=== PATIENT | male | born 1990 | race Caucasian/White ===

== ENCOUNTER 2016-10-07 12:36 | Emergency (ER) | payer SELFPAY ==
[~2016-10-07] VITALS: Ht 170.2 cm; Wt 71.8 kg
[~2016-10-07 12:36] MED LIST: DIPH50CA25 PO; FAMO20TA5 PO; NAPR500T8 PO
[2016-10-07 12:45] VITALS: BP 120/62
--- NOTE | 2016-10-07 13:54 | ED.ADGEN ---
Past History Past Medical History: Other Past Surgical History: Other Alcohol Use: None Drug Use: Opiates Adult General HPI HPI Patient presents with a 2 day history of subjective and intermittent fever, sore throat, nonproductive cough, and rhinorrhea. Has been taking over-the- counter medications. 3 other family members have the exact same symptoms in the family. Review of Systems Review of Systems Constitutional: Denies fever or chills [] Eyes: Denies change in visual acuity, redness, or eye pain [] HENT: Denies nasal congestion or sore throat [] Respiratory: Denies cough or shortness of breath [] Cardiovascular: No additional information not addressed in HPI [] GI: Denies abdominal pain, nausea, vomiting, bloody stools or diarrhea [] : Denies dysuria or hematuria [] Musculoskeletal: Denies back pain or joint pain [] Integument: Denies rash or skin lesions [] Neurologic: Denies headache, focal weakness or sensory changes [] Endocrine: Denies polyuria or polydipsia [] Allergies Allergies Allergies Coded Allergies Type Severity Reaction Last Updated Verified acetaminophen Allergy Unknown 11/04/14 No morphine Allergy Unknown 11/04/14 No Physical Exam Physical Exam Constitutional: Well developed, well nourished, no acute distress, non-toxic appearance. [] HENT: Normocephalic, atraumatic, bilateral external ears normal, oropharynx moist, no oral exudates, nose normal. Bilateral TMs within normal limits [] Eyes: PERRLA, EOMI, conjunctiva normal, no discharge. [] Neck: Normal range of motion, no tenderness, supple, no stridor. [] Cardiovascular:Heart rate regular rhythm, no murmur [] Lungs & Thorax: Bilateral breath sounds clear to auscultation [] Abdomen: Bowel sounds normal, soft, no tenderness, no masses, no pulsatile masses. [] Skin: Warm, dry, no erythema, no rash. [] Back: No tenderness, no CVA tenderness. [] Extremities: No tenderness, no cyanosis, no clubbing, ROM intact, no edema. [] Neurologic: Alert and oriented X 3, normal motor function, normal sensory function, no focal deficits noted. [] Psychologic: Affect normal, judgement normal, mood normal. [] Current Patient Data Vital Signs Vital Signs Date Time Temp Pulse Resp B/P Pulse Ox O2 Delivery O2 Flow Rate FiO2 10/07/16 12:45 98.6 86 16 97 Room Air EKG EKG [] Radiology/Procedures Radiology/Procedures [] Course & Med Decision Making Course & Med Decision Making Pertinent Labs and Imaging studies reviewed. (See chart for details) Patient looks well here in emergency department. Given supportive care and follow-up instructions. [] Final Impression Final Impression Viral syndrome [] Problems: Dragon Disclaimer Dragon Disclaimer This electronic medical record was generated, in whole or in part, using a voice recognition dictation system. ARA BOSE MD Oct 07, 2016 13:54
== END 2016-10-07 13:25 | disposition home or self-care (01) ==
LOC: ER 12:36
DX: B34.9 Viral infection, unspecified (principal); F11.10 Opioid abuse, uncomplicated; Z88.5 Allergy status to narcotic agent; Z88.6 Allergy status to analgesic agent
CPT/HCPCS: 99281

== ENCOUNTER 2016-12-14 15:00 | Emergency (ER) | payer SELFPAY ==
[~2016-12-14] VITALS: Ht 170.2 cm; Wt 74.8 kg
[2016-12-14 15:18] VITALS: BP 130/69
[2016-12-14] MEDS ORDERED: LIDOCAINE 2%/EPI 1:100,000 20 ML VIAL. ONE (15:38)
[2016-12-14] MEDS ORDERED: CEPH-264 PO (15:44)
--- NOTE | 2016-12-14 15:50 | PHYS DOC ---
Past History Past Medical History: No Pertinent History Past Surgical History: No Surgical History Alcohol Use: None Drug Use: None Adult General Chief Complaint Chief Complaint: DENTAL PROBLEM HPI HPI 26-year-old man presents with caries left mandible. Teeth 17 ,18 &19 on the posterior molars on the left mandible are very carious Review of Systems Review of Systems Constitutional: Denies fever or chills [] Eyes: Denies change in visual acuity, redness, or eye pain [] HENT: Denies nasal congestion or sore throat carious teeth as mentioned previously Respiratory: Denies cough or shortness of breath [] Cardiovascular: No additional information not addressed in HPI [] GI: Denies abdominal pain, nausea, vomiting, bloody stools or diarrhea [] : Denies dysuria or hematuria [] Musculoskeletal: Denies back pain or joint pain [] Integument: Denies rash or skin lesions [] Neurologic: Denies headache, focal weakness or sensory changes [] Endocrine: Denies polyuria or polydipsia [] Current Medications Current Medications Current Medications Medications (Trade) Dose Ordered Sig/[facility] Start Time Stop Time Status Last Admin Dose Admin Bupivacaine HCl/ Epinephrine Bitart (Sensorcaine-Epi 0.25%-1:[id number] Mpf) 30 ml 1X ONCE 12/14/16 16:00 12/14/16 16:01 Lidocaine/ Epinephrine (Xylocaine 2%-Epi 1:100,000) 20 ml STK-MED ONCE 12/14/16 15:38 12/14/16 15:39 DC Allergies Allergies Allergies Coded Allergies Type Severity Reaction Last Updated Verified acetaminophen Allergy Unknown 11/04/14 No morphine Allergy Unknown 11/04/14 No Physical Exam Physical Exam Constitutional: Well developed, well nourished, no acute distress, non-toxic appearance. [] HENT: Normocephalic, atraumatic, bilateral external ears normal, oropharynx moist, no oral exudates, nose normal. Teeth 1718 and 19 extremely carious [] Eyes: PERRLA, EOMI, conjunctiva normal, no discharge. [] Neck: Normal range of motion, no tenderness, supple, no stridor. [] Cardiovascular:Heart rate regular rhythm, no murmur [] Lungs & Thorax: Bilateral breath sounds clear to auscultation [] Abdomen: Bowel sounds normal, soft, no tenderness, no masses, no pulsatile masses. [] Skin: Warm, dry, no erythema, no rash. [] Back: No tenderness, no CVA tenderness. [] Extremities: No tenderness, no cyanosis, no clubbing, ROM intact, no edema. [] Neurologic: Alert and oriented X 3, normal motor function, normal sensory function, no focal deficits noted. [] Psychologic: Affect normal, judgement normal, mood normal. [] Current Patient Data Vital Signs Vital Signs Date Time Temp Pulse Resp B/P (MAP) Pulse Ox O2 Delivery O2 Flow Rate FiO2 12/14/16 15:18 98.2 106 18 99 Room Air EKG EKG [] Radiology/Procedures Radiology/Procedures [] Impressions: Carious teeth tooth17/181 Course & Med Decision Making Course & Med Decision Making 26-year-old presents with carious teeth I will place patient on antibiotics she was instructed to take anti-inflammatory medications rest and follow-up with a dentist [] Dragon Disclaimer Dragon Disclaimer This chart was dictated in whole or in part using Voice Recognition software in a busy, high-work load, and often noisy Emergency Department environment. It may contain unintended and wholly unrecognized errors or omissions. Departure Departure: Impression: Primary Impression: Infected dental carries Disposition: 01 HOME, SELF-CARE Condition: STABLE Patient Instructions: Dental Caries, Dental Caries-Brief Scripts Cephalexin (KEFLEX) 500 Mg Capsule 1 CAP PO TID, #21 CAP Prov: LARRY MURRELL MD 12/14/16 LARRY MURRELL MD Dec 14, 2016 15:50
[2016-12-14] MEDS ORDERED: BUPIVACAINE-EPI 0.25%-1:200000 MPF 30 ML VIAL. INJ ONE (16:00)
== END 2016-12-14 15:57 | disposition home or self-care (01) ==
LOC: ER 15:00
DX: K02.9 Dental caries, unspecified (principal); Z88.5 Allergy status to narcotic agent; Z88.6 Allergy status to analgesic agent
CPT/HCPCS: 99283

== ENCOUNTER 2017-05-07 14:51 | Emergency (ER) | payer SELFPAY ==
[~2017-05-07] VITALS: Ht 170.2 cm; Wt 71.8 kg
[~2017-05-07 14:51] MED LIST changes: +CEPH-264 PO
[2017-05-07 15:08] VITALS: BP 131/78
[2017-05-07] MEDS ORDERED: IBUP600T16 PO (15:43)
[2017-05-07] MEDS ORDERED: DOXY100C14 PO (15:43)
--- NOTE | 2017-05-07 15:47 | PHYS DOC ---
General Chief Complaint: ABSCESS Stated Complaint: ABSCESS Time Seen by MD: 15:40 Source: patient, old records Exam Limitations: no limitations Problems: History of Present Illness Initial Comments Patient is a 27-year-old male who comes to the ED complaining of right wrist abscess. Patient has history of IV drug use specifically methamphetamine denies any recent use and he does not appear to be intoxicated in the emergency department today. 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 He denies any fever chills sweats or myalgias, ED vital signs : 98F, 99, 16, 131/78, 97% room air. On further questioning he states that this abscess occurred because he was playing with his kids and accidentally cut his hand. He states "it is not from a miss, Doc." He further states that "I picked up some new points at the pharmacy and I'll go home and drain it" referring to new needles. I advised him that it was unsafe for him to do this procedure at home but as he persistently refuses any intervention here I&D will not be performed. Onset: last week Severity: moderate Pain/Injury Location: right wrist Method of Injury: other Modifying Factors: worse with jarring, worse with movement, improves with rest Allergies: Coded Allergies: acetaminophen (Unverified Allergy, Unknown, 11/04/14) morphine (Unverified Allergy, Unknown, 11/04/14) Past Medical History Medical History: other (intravenous methamphetamine abuse, MRSA abscesses) Surgical History: other Social History Smoker: cigarettes Alcohol: none Drugs: marijuana, other (in the past denies recent use) Review of Systems Constitutional: denies chills, denies diaphoresis, denies fever, denies malaise Respiratory: denies cough, denies shortness of breath Cardiovascular: denies chest pain, denies palpitations Gastrointestinal: denies diarrhea, denies nausea, denies vomiting Musculoskeletal: see HPI Skin: see HPI Physical Exam General Appearance: no apparent distress (pale) HEENT: PERRL/EOMI, normal ENT inspection, TMs normal Neck: non-tender, supple Cardiovascular/Respiratory: normal peripheral pulses, normal breath sounds, no respiratory distress Back: no CVA tenderness, no vertebral tenderness Wrist: swelling (bilateral hands with extensive track pearce, at the posterior medial right wrist overlying the distal ulna a 2 cm tender fluctuant abscess is noted no surrounding erythema painless wrist range of motion indicative of no joint involvement) Neurologic/Tendon: normal sensation, normal motor functions, normal tendon functions, responds to pain Psychiatric: alert, oriented x 3 Orders, Labs, Meds Patient offered and refused I&D once again. I discussed prescription and over- the-counter medications, I discussed signs and symptoms to monitor as well as indications for urgent return to the department. I gave the patient work note and advised him not to go to work until symptoms resolved not only for his personal health but for the safety of the public if he is working in prepared [employer] team leader. His questions were answered to his satisfaction and he expressed agreement and understanding with the treatment plan. Departure Time of Disposition: 15:45 Disposition: 01 HOME, SELF-CARE Diagnosis: right wrist abscess likely MRSA Condition: GOOD Patient Instructions: Abscess Additional Instructions: Continue to abstain from substance abuse. Off work through May 10, note given Warm compresses to affected area 4 times daily. Prescription: Doxycycline, ibuprofen 600 mg Take medications with food to avoid GI upset, nausea and vomiting. Follow-up with your doctor in 3-5 days if not improving. Return to ED with new or changing symptoms. JEFF WESLEY DO May 07, 2017 15:47
== END 2017-05-07 15:55 | disposition home or self-care (01) ==
LOC: ER 14:51
DX: L02.413 Cutaneous abscess of right upper limb (principal); F15.10 Other stimulant abuse, uncomplicated; F17.210 Nicotine dependence, cigarettes, uncomplicated; F12.10 Cannabis abuse, uncomplicated; Z86.14 Personal history of Methicillin resistant Staphylococcus aureus infection; Z88.6 Allergy status to analgesic agent; Z88.5 Allergy status to narcotic agent
CPT/HCPCS: 99283

== ENCOUNTER 2019-09-27 12:27 | Emergency (ER) | payer SELFPAY ==
[~2019-09-27] VITALS: Ht 170.2 cm; Wt 71.8 kg
[~2019-09-27 12:27] MED LIST changes: +DOXY100C14 PO; +IBUP600T16 PO
[2019-09-27 12:40] VITALS: BP 131/78
[2019-09-27] MEDS ORDERED: SULF1TAB24 PO (13:06)
--- NOTE | 2019-09-27 13:06 | PHYS DOC ---
Past History Past Medical History: Other Past Surgical History: No Surgical History Alcohol Use: Rarely Drug Use: Marijuana, Methamphetamine Adult General Chief Complaint Chief Complaint: SKIN RASH/ABSCESS [facility] HPI Patient is a 29-year-old male who presents with complaint of swollen red area around his right forearm that popped up today. Patient states that he has a history of abscesses from prior IV heroin abuse. Patient states that he hasn't used for over 2 years now because he is on methadone. He denies any fever.[] Review of Systems Review of Systems Constitutional: Denies fever or chills [] Respiratory: Denies cough or shortness of breath [] Cardiovascular: No additional information not addressed in HPI [] Integument: Tender, swollen area right forearm[] Allergies Allergies Allergies Coded Allergies Type Severity Reaction Last Updated Verified acetaminophen Allergy Unknown 11/04/14 No morphine Allergy Unknown 11/04/14 No Physical Exam Physical Exam Constitutional: Well developed, well nourished, no acute distress, non-toxic appearance. [] Neck: Normal range of motion, no tenderness, supple, no stridor. [] Cardiovascular:Heart rate regular rhythm, no murmur [] Lungs & Thorax: Bilateral breath sounds clear to auscultation [] Skin: Left forearm demonstrates erythematous, raised area, proximally just distal to the antecubital space. There is induration but no fluctuance. [] Current Patient Data Vital Signs Vital Signs Date Time Temp Pulse Resp B/P (MAP) Pulse Ox O2 Delivery O2 Flow Rate FiO2 09/27/19 12:40 98.0 84 16 131/78 (95) 95 Room Air EKG EKG [] Radiology/Procedures Radiology/Procedures [] Course & Med Decision Making Course & Med Decision Making Pertinent Labs and Imaging studies reviewed. (See chart for details) [] Dragon Disclaimer Dragon Disclaimer This electronic medical record was generated, in whole or in part, using a voice recognition dictation system. Departure Departure: Impression: Primary Impression: Cellulitis of left forearm Disposition: 01 HOME, SELF-CARE Condition: STABLE Referrals: PCP,NO (PCP) Patient Instructions: Cellulitis Scripts Sulfamethoxazole/Trimethoprim (BACTRIM DS TABLET) 1 Each Tablet 1 TAB PO BID for infection for 10 Days, #20 TAB 0 Refills Prov: KHLOE MORRISON Jr. DO 09/27/19 KHLOE MORRISON Jr. DO Sep 27, 2019 13:06
== END 2019-09-27 13:08 | disposition home or self-care (01) ==
LOC: ER 12:27
DX: L03.114 Cellulitis of left upper limb (principal); Z88.6 Allergy status to analgesic agent; Z88.5 Allergy status to narcotic agent
CPT/HCPCS: 99283

== ENCOUNTER 2019-12-28 15:21 | Emergency (ER) | payer SELFPAY ==
[~2019-12-28] VITALS: Ht 170.2 cm; Wt 81.1 kg
[~2019-12-28 15:21] MED LIST changes: +SULF1TAB24 PO
[2019-12-28 15:30] VITALS: BP 109/58
--- NOTE | 2019-12-28 15:59 | PHYS DOC ---
Past History Past Medical History: Other Additional Past Medical Histor: HEP C, OPIATE ADDICTION Past Surgical History: No Surgical History Additional Smoking Information: PACK/DAY Alcohol Use: None Drug Use: Marijuana, Methamphetamine General Adult EDM: Chief Complaint: SUNBURN HPI: HPI: 29-year-old male presents with sunburn of both feet. This happened to him about a week ago when he was at the [employer] and not wearing a sunscreen. Patient comes in today because he has been treating his wounds with nonadherent bandages. He attempted to put a Silvadene-based topical ointment on his feet yesterday and left them covered for about 24 hours. When he went to pull it off the nonadherent bandage was now adhered. He exfoliated the top layer of his right foot and thickened of layer of skin on the left foot to allow it to bleed. He decided come in for evaluation and recommendations for further management. He denies fever chills. The erythema has not spread. Review of Systems: Review of Systems: Constitutional: Denies fever or chills Eyes: Denies change in visual acuity HENT: Denies nasal congestion or sore throat Respiratory: Denies cough or shortness of breath Cardiovascular: Denies chest pain or edema GI: Denies abdominal pain, nausea, vomiting, bloody stools or diarrhea : Denies dysuria Musculoskeletal: Denies back pain or joint pain Integument: Sunburn bilateral feet Neurologic: Denies headache, focal weakness or sensory changes Endocrine: Denies polyuria or polydipsia Lymphatic: Denies swollen glands Psychiatric: Denies depression or anxiety Heart Score: Risk Factors: Risk Factors: DM, Current or recent (<one month) smoker, HTN, HLP, family history of CAD, obesity. Risk Scores: Score 0 - 3: 2.5% MACE over next 6 weeks - Discharge Home Score 4 - 6: 20.3% MACE over next 6 weeks - Admit for Clinical Observation Score 7 - 10: 72.7% MACE over next 6 weeks - Early Invasive Strategies Allergies: Allergies: Allergies Coded Allergies Type Severity Reaction Last Updated Verified acetaminophen Allergy Unknown 11/04/14 No morphine Allergy Unknown 11/04/14 No Physical Exam: PE: Constitutional: Well developed, well nourished, no acute distress, non-toxic appearance. [] HENT: Normocephalic, atraumatic, bilateral external ears normal, oropharynx moist, no oral exudates, nose normal. [] Eyes: PERRLA, EOMI, conjunctiva normal, no discharge. [] Neck: Normal range of motion, no tenderness, supple, no stridor. [] Cardiovascular: Heart rate regular rhythm, no murmur [] Lungs & Thorax: Bilateral breath sounds clear to auscultation [] Abdomen: Bowel sounds normal, soft, no tenderness, no masses, no pulsatile masses. [] Skin: Erythematous, warm skin over the bilateral dorsal feet. Consistent with second-degree nicholson. Left foot with evidence of recent superficial bleeding. [] Back: No tenderness, no CVA tenderness. [] Extremities: No tenderness, no cyanosis, no clubbing, ROM intact, no edema. [] Neurologic: Alert and oriented X 3, normal motor function, normal sensory function, no focal deficits noted. [] Psychologic: Affect normal, judgement normal, mood normal. [] Current Patient Data: Vital Signs: Vital Signs Date Time Temp Pulse Resp B/P (MAP) Pulse Ox O2 Delivery O2 Flow Rate FiO2 12/28/19 15:30 98.4 108 20 109/58 (75) 96 Room Air EKG: EKG: [] Radiology/Procedures: Radiology/Procedures: [] Course & Med Decision Making: Course & Med Decision Making Pertinent Labs and Imaging studies reviewed. (See chart for details) The patient does appear to have partial-thickness nicholson of his bilateral feet. We will treat him with Xeroform and bulky gauze dressing. Have given him directions to put a thin layer of triple antibiotic on his nonadherent bandages and change them out twice a day to prevent sticking. He understands that this will take several days to heal. I will give him an additional 2 days off of work so that he can hopefully go back to work on Monday. He is stable for discharge at this time. [] Dragon Disclaimer: Dragon Disclaimer: This electronic medical record was generated, in whole or in part, using a voice recognition dictation system. Departure Departure: Impression: Primary Impression: Sunburn of second degree Disposition: 01 HOME/RESIDENCE PRIOR TO ADM Condition: STABLE Referrals: PCP,NO (PCP) Patient Instructions: Sunburn, [id number] Additional Instructions: To address your wounds, you should put a thin layer of triple antibiotic ointment on a nonadherent pad and then wrap it with a soft dressing. You should change these twice a day. If you can leave your feet open to the air while at home and keep them clean this would be good. If your dressings are getting saturated or filled with sweat, you need to change them out more often. Justification of Admission: Justification of Admission: Justification of Admission Dx: N/A JULIA MUNIZ DO Dec 28, 2019 15:59
== END 2019-12-28 16:05 | disposition home or self-care (01) ==
LOC: ER 15:21
DX: L55.1 Sunburn of second degree (principal); F17.200 Nicotine dependence, unspecified, uncomplicated; Z88.6 Allergy status to analgesic agent; Z88.5 Allergy status to narcotic agent
CPT/HCPCS: 16020; 99282; 99283

== ENCOUNTER 2020-04-17 14:38 | Emergency (ER) | payer SELFPAY ==
[~2020-04-17] VITALS: Ht 170.2 cm; Wt 86.0 kg
[2020-04-17 14:54] VITALS: BP 143/81
[2020-04-17 16:11] LABS: BASO % 1 % (0-3); EOS # 0.2 x10^3/uL (0.0-0.7); EOS % 5 % (0-3); HEMATOCRIT 45.1 % (39.0-53.0); HEMOGLOBIN 14.8 g/dL (13.0-17.5); LYMPH # 1.1 x10^3/uL (1.0-4.8); LYMPH % 25 % (24-48); MEAN CORPUSCULAR HEMOGLOBIN 29 pg (25-35); MEAN CORPUSCULAR HGB CONC 33 g/dL (31-37); MEAN CORPUSCULAR VOLUME 88 fL (79-100); MONO # 0.4 x10^3/uL (0.0-1.1); MONO % 10 % (0-9); NEUT # 2.6 x10^3uL (1.8-7.7); NEUT % 60 % (31-73); PLATELET COUNT 192 x10^3/uL (140-400); RED BLOOD COUNT 5.11 x10^6/uL (4.30-5.70); RED CELL DISTRIBUTION WIDTH 13.3 % (11.5-14.5); WHITE BLOOD COUNT 4.4 x10^3/uL (4.0-11.0)
[2020-04-17 16:18] LABS: CALCIUM 8.7 mg/dL (8.5-10.1); GFR 87.2; POTASSIUM 4.1 mmol/L (3.5-5.1)
[2020-04-17 16:20] LABS: BILIRUBIN,URINE NEG (NEG); CLARITY,URINE CLEAR; COLOR,URINE YELLOW; GLUCOSE,URINE NEG (NEG); NITRITE,URINE NEG (NEG); RBC,URINE 0 /HPF (0-2); UROBILINOGEN,URINE 0.2 mg/dL (0.2 mg/dL); WBC,URINE OCC /HPF (0-4)
[2020-04-17 16:21] LABS: BACTERIA,URINE 0 /HPF (0-FEW); SQUAMOUS EPITHELIAL CELL,UR OCC /LPF
[2020-04-17 16:24] LABS: ALBUMIN 3.3 g/dL (3.4-5.0); ALBUMIN/GLOBULIN RATIO 0.8 (1.0-1.7); TOTAL BILIRUBIN 0.4 mg/dL (0.2-1.0); TOTAL PROTEIN 7.2 g/dL (6.4-8.2)
[2020-04-17] MEDS ORDERED: cefTRIAXone IM 250 MG VIAL IM ONE (16:30)
[2020-04-17] MEDS ORDERED: AZITHROMYCIN 250 MG TABLET. PO ONE (16:30)
[2020-04-17] MEDS ORDERED: METR500T PO (16:37)
--- NOTE | 2020-04-17 16:38 | PHYS DOC ---
Past History Past Medical History: Abscess, Asthma Additional Past Medical Histor: HEP C, OPIATE ADDICTION Past Surgical History: Other Alcohol Use: None Drug Use: Marijuana, Methamphetamine General Adult EDM: Chief Complaint: FEVER HPI: HPI: 30-year-old male presents with subjective fever, body aches, and concern for STD. Patient's girlfriend tested positive for trichomonas and he is worried about having STD himself. He is also had body aches and a cough. He is mildly concerned about COVID-19 though he does not have any specific exposures. Review of Systems: Review of Systems: Constitutional: Fever Eyes: Denies change in visual acuity HENT: Denies nasal congestion or sore throat Respiratory: Cough without shortness of breath Cardiovascular: Denies chest pain or edema GI: Denies abdominal pain, nausea, vomiting, bloody stools or diarrhea : No urinary or penile symptoms. Musculoskeletal: Denies back pain or joint pain Integument: Denies rash Neurologic: Denies headache, focal weakness or sensory changes Endocrine: Denies polyuria or polydipsia Lymphatic: Denies swollen glands Psychiatric: Denies depression or anxiety Heart Score: Risk Factors: Risk Factors: DM, Current or recent (<one month) smoker, HTN, HLP, family history of CAD, obesity. Risk Scores: Score 0 - 3: 2.5% MACE over next 6 weeks - Discharge Home Score 4 - 6: 20.3% MACE over next 6 weeks - Admit for Clinical Observation Score 7 - 10: 72.7% MACE over next 6 weeks - Early Invasive Strategies Current Medications: Current Meds: Current Medications Medications (Trade) Dose Ordered Sig/[facility] Start Time Stop Time Status Last Admin Dose Admin Azithromycin (Zithromax) 1,000 mg 1X ONCE 04/17/20 16:30 04/17/20 16:31 UNV Ceftriaxone Sodium (Rocephin Im) 250 mg 1X ONCE 04/17/20 16:30 04/17/20 16:31 UNV Allergies: Allergies: Allergies Coded Allergies Type Severity Reaction Last Updated Verified acetaminophen Allergy Unknown 11/04/14 No morphine Allergy Unknown 11/04/14 No Physical Exam: PE: Constitutional: Well developed, well nourished, no acute distress, non-toxic appearance. [] HENT: Normocephalic, atraumatic, bilateral external ears normal, oropharynx moist, no oral exudates, nose normal. [] Eyes: PERRLA, EOMI, conjunctiva normal, no discharge. [] Neck: Normal range of motion, no tenderness, supple, no stridor. [] Cardiovascular: Heart rate regular rhythm, no murmur [] Lungs & Thorax: Bilateral breath sounds clear to auscultation [] Abdomen: Bowel sounds normal, soft, no tenderness, no masses, no pulsatile mass es. [] Skin: Warm, dry, no erythema, no rash. [] Back: No tenderness, no CVA tenderness. [] Extremities: No tenderness, no cyanosis, no clubbing, ROM intact, no edema. [] Neurologic: Alert and oriented X 3, normal motor function, normal sensory function, no focal deficits noted. [] Psychologic: Affect normal, judgement normal, mood normal. [] Current Patient Data: Labs: Laboratory Tests Test 04/17/20 15:34 04/17/20 15:38 White Blood Count 4.4 x10^3/uL (4.0-11.0) Red Blood Count 5.11 x10^6/uL (4.30-5.70) Hemoglobin 14.8 g/dL (13.0-17.5) Hematocrit 45.1 % (39.0-53.0) Mean Corpuscular Volume 88 fL (79-100) Mean Corpuscular Hemoglobin 29 pg (25-35) Mean Corpuscular Hemoglobin Concent 33 g/dL (31-37) Red Cell Distribution Width 13.3 % (11.5-14.5) Platelet Count 192 x10^3/uL (140-400) Neutrophils (%) (Auto) 60 % (31-73) Lymphocytes (%) (Auto) 25 % (24-48) Monocytes (%) (Auto) 10 % (0-9) H Eosinophils (%) (Auto) 5 % (0-3) H Basophils (%) (Auto) 1 % (0-3) Neutrophils # (Auto) 2.6 x10^3uL (1.8-7.7) Lymphocytes # (Auto) 1.1 x10^3/uL (1.0-4.8) Monocytes # (Auto) 0.4 x10^3/uL (0.0-1.1) Eosinophils # (Auto) 0.2 x10^3/uL (0.0-0.7) Basophils # (Auto) 0.0 x10^3/uL (0.0-0.2) Sodium Level 136 mmol/L (136-145) Potassium Level 4.1 mmol/L (3.5-5.1) Chloride Level 101 mmol/L (98-107) Carbon Dioxide Level 31 mmol/L (21-32) Anion Gap 4 (6-14) L Blood Urea Nitrogen 10 mg/dL (8-26) Creatinine 1.0 mg/dL (0.7-1.3) Estimated GFR (Cockcroft-Gault) 87.2 BUN/Creatinine Ratio 10 (6-20) Glucose Level 127 mg/dL (70-99) H Calcium Level 8.7 mg/dL (8.5-10.1) Total Bilirubin 0.4 mg/dL (0.2-1.0) Aspartate Amino Transferase (AST) 19 U/L (15-37) Alanine Aminotransferase (ALT) 21 U/L (16-63) Alkaline Phosphatase 125 U/L (46-116) H Total Protein 7.2 g/dL (6.4-8.2) Albumin 3.3 g/dL (3.4-5.0) L Albumin/Globulin Ratio 0.8 (1.0-1.7) L Urine Collection Type Unknown Urine Color Yellow Urine Clarity Clear Urine pH 6.5 Urine Specific [place] 1.025 Urine Protein Neg (NEG-TRACE) Urine Glucose (UA) Neg mg/dL (NEG) Urine Ketones (Stick) Trace mg/dL (NEG) Urine Blood Neg (NEG) Urine Nitrite Neg (NEG) Urine Bilirubin Neg (NEG) Urine Urobilinogen Dipstick 0.2 mg/dL (0.2 mg/dL) Urine Leukocyte Esterase Neg (NEG) Urine RBC 0 /HPF (0-2) Urine WBC Occ /HPF (0-4) Urine Squamous Epithelial Cells Occ /LPF Urine Bacteria 0 /HPF (0-FEW) Urine Mucus Slight /LPF Vital Signs: Vital Signs Date Time Temp Pulse Resp B/P (MAP) Pulse Ox O2 Delivery O2 Flow Rate FiO2 04/17/20 14:54 98.4 67 16 143/81 (101) 94 Room Air EKG: EKG: [] Radiology/Procedures: Radiology/Procedures: [] Course & Med Decision Making: Course & Med Decision Making Pertinent Labs and Imaging studies reviewed. (See chart for details) I went ahead and ordered a COVID-19 test for the patient. I have low suspicion for COVID. Patient would like prophylactic treatment for STDs. I will treat him with 2 and 50 mg Rocephin IM, 1 g of azithromycin, and a prescription for Flagyl for 7 days. [] Dragon Disclaimer: Dragon Disclaimer: This electronic medical record was generated, in whole or in part, using a voice recognition dictation system. Departure Departure: Impression: Primary Impression: Concern about STD in male without diagnosis Additional Impression: Counseled about COVID-19 virus infection Disposition: DC HOME SELF CARE/HOMELESS Condition: STABLE Referrals: PCP,NO (PCP) Patient Instructions: Sexually Transmitted Disease, Xwxo-me-Clim Scripts Metronidazole (FLAGYL) 500 Mg Tablet 1 TAB PO BID for STD, #14 TAB Prov: JULIA MUNIZ DO 04/17/20 JULIA MUNIZ DO Apr 17, 2020 16:38
== END 2020-04-17 16:52 | disposition home or self-care (01) ==
LOC: ER 14:38
DX: Z20.2 Contact with and (suspected) exposure to infections with a predominantly sexual mode of transmission (principal); Z20.828 Contact with and (suspected) exposure to other viral communicable diseases; J45.909 Unspecified asthma, uncomplicated; F12.10 Cannabis abuse, uncomplicated; F15.10 Other stimulant abuse, uncomplicated; Z88.6 Allergy status to analgesic agent; Z88.5 Allergy status to narcotic agent
CPT/HCPCS: 36415; 80053; 81001; 85025; 87491; 87591; 96372; 99283; J0456; J0696; U0003

== ENCOUNTER 2020-06-22 09:18 | Emergency (ER) | payer SELFPAY ==
[~2020-06-22] VITALS: Ht 170.2 cm; Wt 81.0 kg
[~2020-06-22 09:18] MED LIST changes: +METR500T PO
[2020-06-22 09:29] VITALS: BP 118/57
--- NOTE | 2020-06-22 09:30 | PHYS DOC ---
Past History Past Medical History: Abscess, Asthma Additional Past Medical Histor: HEP C, OPIATE ADDICTION Past Surgical History: Other Alcohol Use: None Drug Use: Marijuana, Methamphetamine Adult General Chief Complaint Chief Complaint: DENTAL PROBLEM HPI HPI Patient is a 30-year-old male who presents with dental pain. 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 States this is because of his poor dental hygiene. Does not have insurance at all, states for the past x1 week he has had worsening dental pain to his left upper incisor. He has been taking ibuprofen with mild relief in pain but admits worsened pain and swelling to his gum and left upper lip area today which concerned him prompting him to visit our ER for evaluation. He has history of dental infections and abscesses, currently does not have dental insurance and has not talked to a dentist about this. Denies any fever, no headaches, no crepitus or expression of pus Review of Systems Review of Systems Fourteen body systems of review of systems have been reviewed. See HPI for pertinent positives and negative responses, other rodriguez all other systems are negative, non-pertinent or non-contributory Allergies Allergies Allergies Coded Allergies Type Severity Reaction Last Updated Verified acetaminophen Allergy Unknown 11/04/14 No morphine Allergy Unknown 11/04/14 No Physical Exam Physical Exam Constitutional: Well developed, well nourished, no acute distress, non-toxic appearance. HENT: Normocephalic, atraumatic, bilateral external ears normal, oropharynx moist, no oral exudates, nose normal. Uvula: without deviation or edema. Uvula midline. Soft palate: without swelling Sublingual: normal appearance/no brawny edema or tongue elevation Teeth and gums: Poor dental hygiene. No pus expression, no gingival swelling, no active oral bleeding. Tenderness and periapical swelling to left upper incisor tooth #11 without any obvious abscess or other bacterial collection Tonsils: without pus. Eyes: PERRLA, EOMI, conjunctiva normal, no discharge. Neck: Normal range of motion, no tenderness, supple, no stridor. Cardiovascular: Heart rate regular per monitor Lungs & Thorax: No respiratory distress or accessory muscle use, bilateral chest rise Abdomen: Abdomen soft, non-tender, no guarding or rebound, nonacute abdomen. Skin: Warm, dry, no erythema, no rash. Back: No tenderness, no CVA tenderness. Extremities: No tenderness, no cyanosis, no clubbing, ROM intact, no edema. Neurologic: Alert and oriented X 3, grossly normal motor & sensory function, no focal deficits noted. Psychologic: Anxious affect, judgement normal, mood normal. Current Patient Data Vital Signs Vital Signs Date Time Temp Pulse Resp B/P (MAP) Pulse Ox O2 Delivery O2 Flow Rate FiO2 06/22/20 09:29 97.0 74 18 118/57 (77) 96 Room Air EKG EKG [] Radiology/Procedures Radiology/Procedures [] Heart Score Risk Factors: Risk Factors: DM, Current or recent (<one month) smoker, HTN, HLP, family history of CAD, obesity. Risk Scores: Risk Factors: DM, Current or recent (<one month) smoker, HTN, HLP, family history of CAD, obesity. Course & Med Decision Making Course & Med Decision Making History and physical exam consistent with acute dental infection in setting of chronic poor dental hygiene No emergent and/or surgical findings present today. No indication for further diagnostic work-up and/or intervention or hospital admission Patient prescribed amoxicillin which she is taken in the past and tolerated well. Patient given resources on local dental offices to call immediately after discharge today to discuss need for tooth extraction Discussed with the patient all findings and diagnostic testing as well as the need to follow up with PCP for further evaluation and treatment or return to the ED if any new or worsening symptoms. Strict return precautions were also discussed at length with good understanding by patient. Patient voiced understanding and agreement with the plan. Hemodynamically stable at time of disposition. Dragon Disclaimer Dragon Disclaimer This electronic medical record was generated, in whole or in part, using a voice recognition dictation system. Departure Departure: Impression: Primary Impression: Infected dental carries Disposition: 01 DC HOME SELF CARE/HOMELESS Condition: STABLE Referrals: PCP,NO (PCP) Patient Instructions: Dental Pain Additional Instructions: You were seen for a dental infection. There was no indication for drainage today; however, you must take the entire course of antibiotics as prescribed and follow-up with dentist in upcoming 48 to 72 hours for repeat examination. Please utilize the attached list of local dental offices to call to discuss need for tooth extraction and further dental care. You need to return to the ED if you develop worsening pain, fever, swelling, redness, or any other new or concerning symptoms. Scripts Amoxicillin (AMOXICILLIN) 500 Mg Capsule 1 CAP PO TID for Dental Infection for 7 Days, #21 CAP Prov: SUN ROD DO 06/22/20 SUN ROD DO Jun 22, 2020 09:30
[2020-06-22] MEDS ORDERED: AMOX500C PO (09:41)
== END 2020-06-22 09:52 | disposition home or self-care (01) ==
LOC: ER 09:18
DX: K06.8 Other specified disorders of gingiva and edentulous alveolar ridge (principal); K02.9 Dental caries, unspecified; K04.7 Periapical abscess without sinus; J45.909 Unspecified asthma, uncomplicated; Z88.8 Allergy status to other drugs, medicaments and biological substances; Z88.5 Allergy status to narcotic agent
CPT/HCPCS: 99283

== ENCOUNTER 2021-01-12 20:38 | Emergency (ER) | payer SELFPAY ==
[~2021-01-12] VITALS: Ht 170.2 cm; Wt 76.6 kg
[~2021-01-12 20:38] MED LIST changes: +AMOX500C PO; +DOXY-181 PO; -DOXY100C14 PO
[2021-01-12 20:43] VITALS: BP 125/76
[2021-01-12] MEDS ORDERED: AMOX500C PO (21:07)
--- NOTE | 2021-01-12 21:19 | PHYS DOC ---
Past History Past Medical History: Asthma Additional Past Medical Histor: HEP C, OPIATE ADDICTION (NOE WOOTEN APRN) Past Surgical History: Other Additional Past Surgical Histo: ABSCESS (NOE WOOTEN APRN) Alcohol Use: None Drug Use: Marijuana, Methamphetamine (NOE WOOTEN APRN) General Adult EDM: Chief Complaint: DENTAL PROBLEM HPI: HPI: Patient is a 30-year-old male presents with dental pain. Patient states "I was seen here a couple months ago for tooth pain but after I took the antibiotic the pain improved and I did not follow-up with a dentist". "I feel like all of my teeth are rotting and going to follow-up". Patient has a history of IV drug use and poor dental hygiene. Denies fever. Denies medical history. (NOE WOOTEN APRN) Review of Systems: Review of Systems: Constitutional: Denies fever or chills Eyes: Denies change in visual acuity HENT: Reports frontal tooth pain and broken teeth Respiratory: Denies cough or shortness of breath Cardiovascular: Denies chest pain or edema GI: Denies abdominal pain, nausea, vomiting, bloody stools or diarrhea : Denies dysuria Musculoskeletal: Denies back pain or joint pain Integument: Denies rash Neurologic: Denies headache, focal weakness or sensory changes Endocrine: Denies polyuria or polydipsia Lymphatic: Denies swollen glands Psychiatric: Denies depression or anxiety (NOE WOOTEN APRN) Allergies: Allergies: Allergies Coded Allergies Type Severity Reaction Last Updated Verified acetaminophen Allergy Unknown 06/22/20 No morphine Allergy Unknown 06/22/20 No (NOE WOOTEN APRN) Physical Exam: PE: Constitutional: Well developed, well nourished, no acute distress, non-toxic appearance. [] HENT: Normocephalic, atraumatic, bilateral external ears normal, upper, front tooth broken Eyes: PERRLA, EOMI, conjunctiva normal, no discharge. [] Neck: Normal range of motion, no tenderness, supple, no stridor. [] Cardiovascular:Heart rate regular rhythm, no murmur [] Lungs & Thorax: Bilateral breath sounds clear to auscultation [] Abdomen: Bowel sounds normal, soft, no tenderness, no masses, no pulsatile masses. [] Skin: Warm, dry, no erythema, no rash. [] Back: No tenderness, no CVA tenderness. [] Extremities: No tenderness, no cyanosis, no clubbing, ROM intact, no edema. [] Neurologic: Alert and oriented X 3, normal motor function, normal sensory function, no focal deficits noted. [] Psychologic: Affect normal, judgement normal, mood normal. [] (NOE WOOTEN APRN) Current Patient Data: Vital Signs: Vital Signs Date Time Temp Pulse Resp B/P (MAP) Pulse Ox O2 Delivery O2 Flow Rate FiO2 01/12/21 20:43 98.0 72 16 125/76 98 Nasal Cannula (NOE WOOTEN APRN) EKG: EKG: [] (NOE WOOTEN APRN) Radiology/Procedures: Radiology/Procedures: [] (NOE WOOTEN APRN) Heart Score: C/O Chest Pain: No Risk Factors: Risk Factors: DM, Current or recent (<one month) smoker, HTN, HLP, family history of CAD, obesity. Risk Scores: Score 0 - 3: 2.5% MACE over next 6 weeks - Discharge Home Score 4 - 6: 20.3% MACE over next 6 weeks - Admit for Clinical Observation Score 7 - 10: 72.7% MACE over next 6 weeks - Early Invasive Strategies (NOE WOOTEN APRN) Course & Med Decision Making: Course & Med Decision Making Pertinent Labs and Imaging studies reviewed. (See chart for details) [] All who presents with dental pain. Patient given 600 mg ibuprofen. Patient given antibiotic penicillin, 500 mg, 3 times daily for 7 days. Patient given resources for local dentist. Explained to patient that he needs to follow-up w ith a dentist to have teeth extracted. Patient can continue to take ibuprofen and Tylenol at home for pain. Patient given return precautions. Hemodynamically stable upon disposition. (NOE WOOTEN APRN) Course & Med Decision Making Did not see or evaluate patient. Agree with JAVA SYBASE DEVELOPER's work-up and disposition per note. (BELKYS MARQUES MD) Wilman Disclaimer: Wilman Disclaimer: This electronic medical record was generated, in whole or in part, using a voice recognition dictation system. (NOE WOOTEN APRN) Departure Departure: Impression: Primary Impression: Dental caries Disposition: HOME / SELF CARE / HOMELESS Condition: STABLE Referrals: PCP,NO (PCP) Patient Instructions: Dental Caries Additional Instructions: You were seen for a dental infection. You must take the entire course of antibiotics as prescribed and follow-up with dentist in upcoming 48 to 72 hours for repeat examination. You can also take ibuprofen and Tylenol at home for pain. Please utilize the attached list of local dental offices to call to discuss need for tooth extraction and further dental care. EMERGENCY DEPARTMENT GENERAL DISCHARGE INSTRUCTIONS Thank you for coming to [facility] (ED) today and trusting us with you care. We trust that you had a positivie experience in our Emergency Department. If you wish to speak to the department management, you may call the director at [phone]. YOUR FOLLOW UP INSTRUCTIONS ARE FOLLOWS: 1. Do you have a private Doctor? If you do not have a private doctor, please ask for a resource list of physicians or clinics that may be able to assist you with follow up care. 2. The Emergency Physician has interpreted your x-rays. The X-Ray specialist will also review them. If there is a change in the findings, you will be notified in 48 hours when at all possible. 3. A lab test or culture has been done, your results will be reviewed and you will be notified if you need a change in treatment. ADDITIONAL INSTRUCTIONS AND INFORMATION: 1. Your care today has been supervised by a physician who is specially trained in emergency care. Many problems require more than one evaluation for a complete diagnosis and treatment. We recommend that you schedule your follow up appointment as recommended to ensure complete treatment of you illness or injury. If you are unable to obtain follow up care and continue to have a problem, or if your condition worsens, we recommend that you return to the ED. 2. We are not able to safely determine your condition over the phone nor are we able to give sound medical advice over the phone. For these safety reasons, if you call for medical advice we will ask you to come to the ED for further evaluation. 3. If you have any questions regarding these discharge instructions please call the ED at [phone]. SAFETY INFORMATION: In the interest of safety, wellness, and injury prevention; we encourage you to wear your sealbelt, if you smoke; quite smoking, and we encourage family to use a protective helmet for bicycling and other sporting events that present an increased risk for head injury. IF YOUR SYMPTOMS WORSEN OR NEW SYMPTOMS DEVELOP, OR YOU HAVE CONCERNS ABOUT YOUR CONDITION; OR IF YOUR CONDITION WORSENS WHILE YOU ARE WAITING FOR YOUR FOLLOW UP APPOINTMENT; EITHER CONTACT YOUR PRIMARY CARE DOCTOR, THE PHYSICIAN WHOSE NAME AND NUMBER YOU WERE GIVEN, OR RETURN TO THE ED IMMEDIATELY. Scripts Amoxicillin (AMOXICILLIN) 500 Mg Capsule 1 CAP PO BID for infection for 10 Days, #20 CAP Prov: NOE WOOTEN APRN 01/12/21 NOE WOOTEN APRN Jan 12, 2021 21:19 BELKYS MARQUES MD Jan 13, 2021 00:12
[2021-01-12] MEDS ORDERED: HYDROcodone/APAP 5/325MG 1 TAB TABLET PO ONE (21:30)
[2021-01-12] MEDS ORDERED: IBUPROFEN 600 MG TABLET. PO ONE (21:30)
[2021-01-12] MEDS ORDERED: AMOXICILLIN 250 MG CAPSULE PO ONE (21:30)
== END 2021-01-12 21:29 | disposition home or self-care (01) ==
LOC: ER 20:38
DX: K02.9 Dental caries, unspecified (principal); J45.909 Unspecified asthma, uncomplicated; Z88.5 Allergy status to narcotic agent; Z88.8 Allergy status to other drugs, medicaments and biological substances
CPT/HCPCS: 99284

== ENCOUNTER 2021-06-13 17:48 | Emergency (ER) | payer OTHER ==
[~2021-06-13] VITALS: Ht 170.2 cm; Wt 77.2 kg
[2021-06-13 18:03] VITALS: BP 116/71
[2021-06-13] MEDS ORDERED: IBUP600T16 PO (18:25)
[2021-06-13] MEDS ORDERED: AMOX1TAB61 PO (18:25)
--- NOTE | 2021-06-13 18:25 | PHYS DOC ---
Past History Past Medical History: Asthma Additional Past Medical Histor: HEP C, OPIATE ADDICTION (SANDRA MONROY APRN) Past Surgical History: Other Additional Past Surgical Histo: ABSCESS (SANDRA MONROY APRN) Smoking: Greater than 1 pack/day Alcohol Use: None Drug Use: Marijuana, Methamphetamine (SANDRA MONROY APRN) General Adult EDM: Chief Complaint: DENTAL PROBLEM HPI: HPI: Patient is a 31-year-old male that presents today with right lower tooth pain. Patient states that pain started yesterday afternoon, he states that he has been taking [id number] ibuprofen for pain, but he says that is not working. He states that he has a job now that he gets insurance in the month of July for dental he says he will see a dentist at that time. Patient states he had an old filling there and the tooth has since broken off from the root since then there is an old filling at that tooth (SANDRA MONROY APRN) Review of Systems: Review of Systems: Constitutional: Denies fever or chills Eyes: Denies change in visual acuity HENT: Right lower molar pain Respiratory: Denies cough or shortness of breath Cardiovascular: Denies chest pain or edema GI: Denies abdominal pain, nausea, vomiting, bloody stools or diarrhea : Denies dysuria Musculoskeletal: Denies back pain or joint pain Integument: Denies rash Neurologic: Denies headache, focal weakness or sensory changes Endocrine: Denies polyuria or polydipsia Lymphatic: Denies swollen glands Psychiatric: Denies depression or anxiety (SANDRA MONROY APRN) Allergies: Allergies: Allergies Coded Allergies Type Severity Reaction Last Updated Verified acetaminophen Allergy Unknown 06/22/20 No morphine Allergy Unknown 06/22/20 No (SANDRA MONROY APRN) Physical Exam: PE: Constitutional: Well developed, well nourished, no acute distress, non-toxic appearance. [] HENT: Multiple teeth missing, right lower gumline is red and inflamed, back molar noted with an old white filling, root is exposed with most of tooth missing only the filling remains. Eyes: PERRLA, EOMI, conjunctiva normal, no discharge. [] Neck: Normal range of motion, no tenderness, supple, no stridor. [] Cardiovascular:Heart rate regular rhythm, no murmur [] Lungs & Thorax: Bilateral breath sounds clear to auscultation [] Abdomen: Bowel sounds normal, soft, no tenderness, no masses, no pulsatile masses. [] Skin: Warm, dry, no erythema, no rash. [] Back: No tenderness, no CVA tenderness. [] Extremities: No tenderness, no cyanosis, no clubbing, ROM intact, no edema. [] Neurologic: Alert and oriented X 3, normal motor function, normal sensory function, no focal deficits noted. [] Psychologic: Affect normal, judgement normal, mood normal. [] (SANDRA MONROY APRN) Current Patient Data: Vital Signs: Temp 98.5 Vital Signs Date Time Temp Pulse Resp B/P (MAP) Pulse Ox O2 Delivery O2 Flow Rate FiO2 06/13/21 18:03 91 18 116/71 (86) 95 (SANDRA MONROY APRN) EKG: EKG: [] (SANDRA MONROY APRN) Radiology/Procedures: Radiology/Procedures: [] (SANDRA MONROY APRN) Heart Score: C/O Chest Pain: N/A Risk Factors: Risk Factors: DM, Current or recent (<one month) smoker, HTN, HLP, family history of CAD, obesity. Risk Scores: Score 0 - 3: 2.5% MACE over next 6 weeks - Discharge Home Score 4 - 6: 20.3% MACE over next 6 weeks - Admit for Clinical Observation Score 7 - 10: 72.7% MACE over next 6 weeks - Early Invasive Strategies (SANDRA MONROY APRN) Course & Med Decision Making: Course & Med Decision Making Pertinent Labs and Imaging studies reviewed. (See chart for details) We will give a list of dental clinics to the patient to follow-up with, also write for antibiotics to be sent to the local pharmacy instructed patient to take ibuprofen as needed for pain since patient is allergic to acetaminophen (SANDRA MONROY APRN) Course & Med Decision Making I was the Attending physician on the above date of service of this patient. This patient was evaluated, examined, treated, and dispositioned from the emergency department by the mid-level practitioner. Although I was working at the time , no assistance was requested. Electronically signed, Sun Rod DO (SUN ROD DO) Wilman Disclaimer: Wilman Disclaimer: This electronic medical record was generated, in whole or in part, using a voice recognition dictation system. (SANDRA MONROY APRN) Departure Departure: Impression: Primary Impression: Pain due to dental caries Disposition: HOME / SELF CARE / HOMELESS Condition: STABLE Referrals: PCP,NO (PCP) Patient Instructions: Dental Caries Additional Instructions: Augmentin 875 mg every 12 hours for the next 14 days Motrin [id number] per label directed as needed for pain Follow-up with the dental clinic or your dental provider as soon as possible Scripts Ibuprofen (IBUPROFEN) 600 Mg Tablet 600 MG PO PRN Q6HRS PRN for PAIN, #30 TAB Prov: SANDRA MONROY APRN 06/13/21 Amoxicillin/Potassium Clav (AUGMENTIN 875-125 TABLET) 1 Each Tablet 1 TAB PO BID for dental caries for 14 Days, #28 TAB 0 Refills Prov: SANDRA MONROY APRN 06/13/21 SANDRA MONROY APRN Jun 13, 2021 18:25 SUN ROD DO Jun 18, 2021 07:04
[2021-06-13] MEDS ORDERED: AMOXICILLIN/K CLAV 875/125MG TABLET. PO ONE (18:30)
[2021-06-13] MEDS ORDERED: AMOXICILLIN/K CLAV 875/125MG TABLET. ONE (18:31)
== END 2021-06-13 18:33 | disposition home or self-care (01) ==
LOC: ER 17:48
DX: K02.9 Dental caries, unspecified (principal); J45.909 Unspecified asthma, uncomplicated; F17.200 Nicotine dependence, unspecified, uncomplicated; Z88.5 Allergy status to narcotic agent; Z88.8 Allergy status to other drugs, medicaments and biological substances
CPT/HCPCS: 99283

== ENCOUNTER 2021-07-22 22:02 | Emergency (ER) | payer OTHER ==
[~2021-07-22] VITALS: Ht 170.2 cm; Wt 77.2 kg
[~2021-07-22 22:02] MED LIST changes: +AMOX1TAB61 PO; -DIPH50CA25 PO; +DIPH50CA53 PO
--- NOTE | 2021-07-22 22:09 | PHYS DOC ---
Past History Past Medical History: Asthma, Hepatitis Additional Past Medical Histor: HEP C, OPIATE ADDICTION Past Surgical History: Other Additional Past Surgical Histo: ABSCESS Smoking: Greater than 1 pack/day Alcohol Use: None Drug Use: Marijuana, Methamphetamine General Adult HPI: HPI: :".. I shot up heroin,,,, and got these 4 areas that got infected on my legs ... 3 of them have drained this one looks ... like it is going to drain ...but I probably need some antibiotics... I did take a friend's amoxicillin but has not really helped yet.." Patient is a 31 year old male heroin addict who presents with above hx and complaints cellulitis and abscess from injecting heroin. Patient's last tetanus was age 13. No recent travel. No specific ill contacts. Patient denies any history of HIV or immunosuppression. Patient does smoke. Patient states he uses heroin every day...." one to two dimes worth". Patient has 4 areas of infected injection sites 2 on each legs. Each appear the size of 4 to 5 cm diameter with a central area of necrosis. There is no striations. There is no adenopathy at femoral area. Patient has multiple chronic scarring and injection sites on legs and arms. Patient at this time declines any referral for drug rehab. Patient not currently following with primary care. Review of Systems: Review of Systems: Constitutional: Denies fever or chills Eyes: Denies change in visual acuity HENT: Denies nasal congestion or sore throat Respiratory: Denies cough or shortness of breath Cardiovascular: Denies chest pain or edema GI: Denies abdominal pain, nausea, vomiting, bloody stools or diarrhea : Denies dysuria Musculoskeletal: Denies back pain or joint pain Integument: Complaints of cellulitis at drug injection sites Neurologic: Denies headache, focal weakness or sensory changes Endocrine: Denies polyuria or polydipsia Lymphatic: Denies swollen glands Psychiatric: Denies depression or anxiety Family History: Family History: Noncontributory to presentation Current Medications: Current Meds: See nursing for home meds Allergies: Allergies: Allergies Coded Allergies Type Severity Reaction Last Updated Verified acetaminophen Allergy Unknown 06/22/20 No morphine Allergy Unknown 06/22/20 No Physical Exam: PE: Constitutional: no acute distress, non-toxic appearance. [] HENT: Normocephalic, atraumatic, bilateral external ears normal, oropharynx moist, no oral exudates, nose normal. Poor dentition Eyes: PERRLA, EOMI, conjunctiva normal, no discharge. [] Neck: Normal range of motion, no tenderness, supple, no stridor. [] Cardiovascular:Heart rate regular rhythm, no murmur [] Lungs & Thorax: Bilateral breath sounds equal apex with few scattered wheezes on auscultation [] Abdomen: Bowel sounds decreased, soft, no tenderness, no masses, no pulsatile masses. [] Skin: Warm, dry, no erythema, no rash. Poor areas of cellulitis as per HPI. Multiple areas of prior injection sites and scarring. Tattoos. Back: No tenderness, no CVA tenderness. [] Extremities: No tenderness, no cyanosis, no clubbing, ROM intact, no edema. [] Neurologic: Alert and oriented X 3, normal motor function, normal sensory function, no focal deficits noted. Ambulatory without problems. Psychologic: Affect anxious, judgement normal, mood normal. [] EKG: EKG: [] Radiology/Procedures: Radiology/Procedures: [] Heart Score: C/O Chest Pain: N/A Risk Factors: Risk Factors: DM, Current or recent (<one month) smoker, HTN, HLP, family history of CAD, obesity. Risk Scores: Score 0 - 3: 2.5% MACE over next 6 weeks - Discharge Home Score 4 - 6: 20.3% MACE over next 6 weeks - Admit for Clinical Observation Score 7 - 10: 72.7% MACE over next 6 weeks - Early Invasive Strategies Course & Med Decision Making: Course & Med Decision Making Pertinent Labs and Imaging studies reviewed. (See chart for details) Begged patient consider referral to drug rehab. Patient declined. Patient was given the number for [facility] if he would like to investigate or have a plan to start drug rehab. Advised the patient if he decide to continue to the use heroin IV, to use clean or sterilized injection syringes and needles. Patient also told clean and disinfect site that he is going to inject. Advised patient never share his injection equipment. Encourage patient to get follow-up testing for HIV and other hepatitis infections. . Patient currently declining any lab work. Advised patient he could always return for reevaluation. For current tx of injection site infections recommend he use warm compresses salt water and Epson salts at least 4 times a day. Afterwards from massage sites with Polysporin. Patient also take Bactrim DS twice a day. Patient to monitor site closely for increased infection. Patient follow-up with his primary care. Encouraged patient to check into the [facility] for outpatient drug rehab, since he currently does not want in hospital treatment. Patient tetanus was updated. Impression: 1. Cellulitis at IV drug injection sites 2. Heroin addiction 3. Tobacco use 4. Hx. of Hepatitis C [] Dragon Disclaimer: Dragon Disclaimer: This electronic medical record was generated, in whole or in part, using a voice recognition dictation system. Departure Departure: Referrals: [facility] (PCP) Scripts Sulfamethoxazole/Trimethoprim (BACTRIM DS TABLET) 1 Each Tablet 1 TAB PO BID for cellulitis for 10 Days, #20 TAB 0 Refills Prov: RIVER ROSSI MD 07/22/21 Wilman Disclaimer This chart was dictated in whole or in part using Voice Recognition software in a busy, high-work load, and often noisy Emergency Department environment. It may contain unintended and wholly unrecognized errors or omissions. RIVER ROSSI MD Jul 22, 2021 22:09
[2021-07-22] MEDS ORDERED: SULF1TAB24 PO (23:26)
[2021-07-22 23:45] VITALS: BP 114/71
[2021-07-22] MEDS ORDERED: cefTRIAXone IM 1 GM VIAL IM ONE (23:45)
[2021-07-22] MEDS ORDERED: SMZ/TMP 800/160MG TABLET. PO ONE (23:45)
[2021-07-22] MEDS ORDERED: DIPHTH,PERTUSS(ACELL),TET TOX 0.5 ML DISP.SYRIN. VAX IM ONE (23:45)
== END 2021-07-23 00:02 | disposition home or self-care (01) ==
LOC: ER 22:02
DX: L03.116 Cellulitis of left lower limb (principal); L03.115 Cellulitis of right lower limb; F11.20 Opioid dependence, uncomplicated; J45.909 Unspecified asthma, uncomplicated; F17.200 Nicotine dependence, unspecified, uncomplicated; F12.10 Cannabis abuse, uncomplicated; F15.10 Other stimulant abuse, uncomplicated; Z88.5 Allergy status to narcotic agent; Z88.8 Allergy status to other drugs, medicaments and biological substances
CPT/HCPCS: 90471; 90715; 96372; 99284; J0696

== ENCOUNTER 2021-10-22 22:00 | Emergency (ER) | payer OTHER ==
[~2021-10-22] VITALS: Ht 170.2 cm; Wt 81.0 kg
[2021-10-22 22:17] VITALS: BP 139/66
[2021-10-22] MEDS ORDERED: SMZ/TMP 800/160MG TABLET. PO ONE (22:30)
[2021-10-22] MEDS ORDERED: SULF1TAB24 PO (22:31)
--- NOTE | 2021-10-22 22:32 | PHYS DOC ---
Past History Past Medical History: Asthma, Hepatitis Additional Past Medical Histor: HEP C, OPIATE ADDICTION Past Surgical History: Other Additional Past Surgical Histo: Abscess Smoking: Greater than 1 pack/day Alcohol Use: None Drug Use: Marijuana, Methamphetamine General Adult EDM: Chief Complaint: SKIN RASH/ABSCESS HPI: HPI: 31-year-old male presents with left hand cellulitis and abscess. Patient got scratched on his hand several days ago and it is turned into a cellulitis. He had an area of fluctuance that spontaneously started draining earlier today. The patient presents for antibiotics. He has had MRSA in the past. He used to be an IV drug user. He is not requesting pain medication. He has no reported fever. Denies any other complaints this time. Review of Systems: Review of Systems: Constitutional: Denies fever or chills Eyes: Denies change in visual acuity HENT: Denies nasal congestion or sore throat Respiratory: Denies cough or shortness of breath Cardiovascular: Denies chest pain or edema GI: Denies abdominal pain, nausea, vomiting, bloody stools or diarrhea : Denies dysuria Musculoskeletal: Denies back pain or joint pain Integument: Cellulitis and abscess left hand Neurologic: Denies headache, focal weakness or sensory changes Endocrine: Denies polyuria or polydipsia Lymphatic: Denies swollen glands Psychiatric: Denies depression or anxiety Allergies: Allergies: Allergies Coded Allergies Type Severity Reaction Last Updated Verified acetaminophen Allergy Unknown 10/22/21 No morphine Allergy Unknown 10/22/21 No Physical Exam: PE: Constitutional: Well developed, well nourished, no acute distress, non-toxic appearance. [] HENT: Normocephalic, atraumatic, bilateral external ears normal, oropharynx moist, no oral exudates, nose normal. [] Eyes: PERRLA, EOMI, conjunctiva normal, no discharge. [] Neck: Normal range of motion, no tenderness, supple, no stridor. [] Cardiovascular:Heart rate regular rhythm, no murmur [] Lungs & Thorax: Bilateral breath sounds clear to auscultation [] Abdomen: Bowel sounds normal, soft, no tenderness, no masses, no pulsatile masses. [] Skin: Erythematous, hot skin of the posterior left hand with spontaneously draining abscess. Cellulitis 4 cm in diameter. [] Back: No tenderness, no CVA tenderness. [] Extremities: No tenderness, no cyanosis, no clubbing, ROM intact, no edema. [] Neurologic: Alert and oriented X 3, normal motor function, normal sensory function, no focal deficits noted. [] Psychologic: Affect normal, judgement normal, mood normal. [] Current Patient Data: Vital Signs: Vital Signs Date Time Temp Pulse Resp B/P (MAP) Pulse Ox O2 Delivery O2 Flow Rate FiO2 10/22/21 22:17 98.8 108 20 139/66 (90) 96 Room Air EKG: EKG: [] Radiology/Procedures: Radiology/Procedures: [] Heart Score: C/O Chest Pain: N/A Risk Factors: Risk Factors: DM, Current or recent (<one month) smoker, HTN, HLP, family history of CAD, obesity. Risk Scores: Score 0 - 3: 2.5% MACE over next 6 weeks - Discharge Home Score 4 - 6: 20.3% MACE over next 6 weeks - Admit for Clinical Observation Score 7 - 10: 72.7% MACE over next 6 weeks - Early Invasive Strategies Course & Med Decision Making: Course & Med Decision Making Pertinent Labs and Imaging studies reviewed. (See chart for details) The patient has cellulitis and an abscess. The abscess is spontaneously draining. I will place the patient on Bactrim and give his first dose in the emergency room. He is stable for discharge at this time. Tetanus is up-to-date. [] Janeon Disclaimer: Wilman Disclaimer: This electronic medical record was generated, in whole or in part, using a voice recognition dictation system. Departure Departure: Impression: Primary Impression: Abscess or cellulitis Disposition: HOME / SELF CARE / HOMELESS Condition: STABLE Referrals: PCP,RANDALL (PCP) Patient Instructions: Cellulitis, [id number] Scripts Sulfamethoxazole/Trimethoprim (BACTRIM DS TABLET) 1 Each Tablet 1 TAB PO BID for cellulitis for 7 Days, #14 TAB 0 Refills Prov: JULIA MUNIZ DO 10/22/21 JULIA MUNIZ DO Oct 22, 2021 22:31
== END 2021-10-22 22:40 | disposition home or self-care (01) ==
LOC: ER 22:00
DX: L03.114 Cellulitis of left upper limb (principal); L02.512 Cutaneous abscess of left hand; J45.909 Unspecified asthma, uncomplicated; F17.200 Nicotine dependence, unspecified, uncomplicated; Z88.5 Allergy status to narcotic agent; Z88.8 Allergy status to other drugs, medicaments and biological substances
CPT/HCPCS: 99283